=== PATIENT | male | born 1955 | race Caucasian/White ===

== ENCOUNTER 2016-11-21 13:53 | Emergency (ER) | payer BC ==
[2016-11-21] MEDS ORDERED: SODIUM CHLORIDE 0.9% 1,000 ML IV STA ×2 (15:24)
[2016-11-21] MEDS ORDERED: ACETAMINOPHEN IV (For NPO) 1,000 MG in SALINE 100 100ML.BAG IVPB STA (15:25)
--- NOTE | 2016-11-21 15:26 | ED ---
General Adult HPI - General Chief complaint: Abdominal Pain Stated complaint: Side/Abd Pain Time Seen by Provider: 11/21/16 15:15 Source: patient, RN notes reviewed Mode of arrival: wheelchair Limitations: no limitations - History of Present Illness Initial comments: 59-year-old male who presents emergency room today with a chief complaint of left sided abdominal pain. Patient admits that pain started approximately midnight last night. Patient states that sharp type pain located in the left side currently only 1/10. Does admit that he had symptoms of nausea vomiting earlier as well. States he did have kidney stones in the past and provides some somewhat of this. He denies any other symptoms at this time. Patient denies any recent fever, chills, shortness of breath, chest pain, back pain, numbness or tingling, dysuria or hematuria, constipation or diarrhea, headaches or visual changes, or any other complaints. - Related Data Home Medications Medication Instructions Recorded Confirmed Aspirin EC [Ecotrin Low Dose] 81 mg PO QAM 11/21/16 11/21/16 Atorvastatin [Lipitor] 40 mg PO QAM 11/21/16 11/21/16 Loratadine [Claritin] 10 mg PO QAM 11/21/16 11/21/16 Bouse-3 Fatty Acids/Fish Oil [Fish 1 cap PO QAM 11/21/16 11/21/16 Oil 1,000 mg Softgel] Omeprazole 20 mg PO QAM 11/21/16 11/21/16 Previous Rx's Medication Instructions Recorded Hydrocodone/Acetaminophen [[place] 1 each PO Q6HR PRN #20 tab 11/21/16 5-325] Ibuprofen [Motrin] 800 mg PO Q6HR PRN #30 tab 11/21/16 Ondansetron Odt [Zofran ODT] 4 mg PO Q8HR PRN #20 tab 11/21/16 Tamsulosin [Flomax] 0.4 mg PO DAILY #10 cap 11/21/16 Allergies Allergy/AdvReac Type Severity Reaction Status Date / Time procaine [From Novocain] Allergy Severe Anaphylaxis Verified 11/21/16 15:52 morphine AdvReac Severe Nausea & Verified 11/21/16 15:52 Vomiting Review of Systems ROS Statement: Those systems with pertinent positive or pertinent negative responses have been documented in the HPI. ROS Other: All systems not noted in ROS Statement are negative. Past Medical History Past Medical History: GERD/Reflux, Hyperlipidemia History of Any Multi-Drug Resistant Organisms: None Reported Additional Past Surgical History / Comment(s): oral Past Psychological History: No Psychological Hx Reported Smoking Status: Former smoker Past Alcohol Use History: None Reported Past Drug Use History: None Reported General Exam - General Exam Comments Initial Comments: General: The patient is awake and alert, in no distress, and does not appear acutely ill. Eye: Pupils are equal, round and reactive to light, extra-ocular movements are intact. No nystagmus. There is normal conjunctiva bilaterally. No signs of icterus. Ears, nose, mouth and throat: There are moist mucous membranes and no oral lesions. Neck: The neck is supple, there is no tenderness or JVD. Cardiovascular: There is a regular rate and rhythm. No murmur, rub or gallop is appreciated. Respiratory: Lungs are clear to auscultation, respirations are non-labored, breath sounds are equal. No wheezes, stridor, rales, or rhonchi. Gastrointestinal: Soft, non-distended, non-tender abdomen without masses or organomegaly noted. There is no rebound or guarding present. No CVA tenderness. Bowel sounds are unremarkable. Musculoskeletal: Normal ROM, no tenderness. Strength 5/5. Sensation intact. Pulses equal bilaterally 2+. Neurological: A&O x 3. CN II-XII intact, There are no obvious motor or sensory deficits. Coordination appears grossly intact. Speech is normal. Skin: Skin is warm and dry and no rashes or lesions are noted. Psychiatric: Cooperative, appropriate mood & affect, normal judgment. Limitations: no limitations Course Vital Signs 11/21/16 11/21/16 11/21/16 14:05 15:48 17:16 Temperature 97.8 F 97.8 F 98.5 F Pulse Rate 90 99 97 Respiratory 20 16 14 Rate Blood Pressure 164/85 176/96 167/85 O2 Sat by Pulse 98 97 97 Oximetry Medical Decision Making - Medical Decision Making Patient reexamined at this time shows no signs acute distress. Resting comfortably in the stretcher. Patient abdomen soft on palpation. His pain is controlled here in the emergency room. His labs been reviewed shows a 15,000 white count. He does admit his episodes of nausea vomiting this morning. Patient's CAT scan does reveal a 4 mm stone on the left. Patient feels comfortable being discharged home. Will be given a prescription for pain medication, nausea medication to go home with. Advised follow-up with urologist over the next 2 days if symptoms have not improved or return here to emergency room if any symptoms increase or worsen or for any other concerns. - Lab Data Result diagrams: 11/21/16 15:53 11/21/16 16:18 Lab Results 11/21/16 11/21/16 11/21/16 Range/Units 15:53 15:53 16:18 WBC 15.9 H (3.8-10.6) k/uL RBC 5.64 (4.30-5.90) m/uL Hgb 16.7 (13.0-17.5) gm/dL Hct 48.6 (39.0-53.0) % MCV 86.1 (80.0-100.0) fL MCH 29.5 (25.0-35.0) pg MCHC 34.3 (31.0-37.0) g/dL RDW 12.9 (11.5-15.5) % Plt Count 229 (150-450) k/uL Neutrophils % 87 % Lymphocytes % 7 % Monocytes % 4 % Eosinophils % 1 % Basophils % 1 % Neutrophils # 13.9 H (1.3-7.7) k/uL Lymphocytes # 1.1 (1.0-4.8) k/uL Monocytes # 0.6 (0-1.0) k/uL Eosinophils # 0.1 (0-0.7) k/uL Basophils # 0.1 (0-0.2) k/uL Sodium 145 (137-145) mmol/L Potassium 4.2 (3.5-5.1) mmol/L Chloride 107 (98-107) mmol/L Carbon Dioxide 28 (22-30) mmol/L Anion Gap 10 mmol/L BUN 12 (9-20) mg/dL Creatinine 1.07 (0.66-1.25) mg/dL Est GFR (MDRD) Af Amer >60 (>60 ml/min/1.73 sqM) Est GFR (MDRD) Non-Af >60 (>60 ml/min/1.73 sqM) Glucose 112 H (74-99) mg/dL Calcium 9.8 (8.4-10.2) mg/dL Total Bilirubin 0.7 (0.2-1.3) mg/dL AST 23 (17-59) U/L ALT 42 (21-72) U/L Alkaline Phosphatase 103 (38-126) U/L Total Protein 7.2 (6.3-8.2) g/dL Albumin 4.3 (3.5-5.0) g/dL Amylase 72 (30-110) U/L Lipase 102 (23-300) U/L Urine Color Yellow Urine Appearance Clear (Clear) Urine pH 5.5 (5.0-8.0) Ur Specific [place] 1.018 (1.001-1.035) Urine Protein Trace H (Negative) Urine Glucose (UA) Negative (Negative) Urine Ketones Negative (Negative) Urine Blood Trace H (Negative) Urine Nitrate Negative (Negative) Urine Bilirubin Negative (Negative) Urine Urobilinogen <2.0 (<2.0) mg/dL Ur Leukocyte Esterase Negative (Negative) Urine RBC 20 H (0-5) /hpf Urine WBC 1 (0-5) /hpf Urine Bacteria Rare H (None) /hpf Urine Mucus Occasional H (None) /hpf Disposition Clinical Impression: Kidney stone Disposition: HOME SELF-CARE Condition: Good Instructions: Kidney Stones (ED) Additional Instructions: Please use medication as discussed. Please follow-up with family doctor in the next 2 days of symptoms have not improved. Please return to emergency room if the symptoms increase or worsen or for any other concerns. Prescriptions: Hydrocodone/Acetaminophen [[place] 5-325] 1 each PO Q6HR PRN #20 tab PRN Reason: Pain Ibuprofen [Motrin] 800 mg PO Q6HR PRN #30 tab PRN Reason: Pain Ondansetron Odt [Zofran ODT] 4 mg PO Q8HR PRN #20 tab PRN Reason: Nausea Tamsulosin [Flomax] 0.4 mg PO DAILY #10 cap Referrals: Monik Connors MD [Primary Care Provider] - 1-2 days Magdaleno Mchugh MD [STAFF PHYSICIAN] - 1-2 days Time of Disposition: 17:20
[2016-11-21 16:06] LABS: Basophils # (A) 0.1 k/uL (0-0.2); Basophils % (A) 1 %; CH 29.7; CHCM 34.7; Eosinophils # (A) 0.1 k/uL (0-0.7); Eosinophils % (A) 1 %; HCT 48.6 % (39.0-53.0); HDW 2.78; HGB 16.7 gm/dL (13.0-17.5); Luc # (Auto) 0.12; Luc % (Auto) 1; Lymphocytes # (A) 1.1 k/uL (1.0-4.8); Lymphocytes % (A) 7 %; MCH 29.5 pg (25.0-35.0); MCHC 34.3 g/dL (31.0-37.0); MCV 86.1 fL (80.0-100.0); Mean Platelet Volume 7.8; Monocytes # (A) 0.6 k/uL (0-1.0); Monocytes % (A) 4 %; Neutrophils # (A) 13.9 k/uL (1.3-7.7); Neutrophils % (A) 87 %; RBC 5.64 m/uL (4.30-5.90); RDW 12.9 % (11.5-15.5); WBC 15.9 k/uL (3.8-10.6); WBC (Perox) 16.32
[2016-11-21 16:08] LABS: Appearance,Urine Clear (Clear); Bacteria,Urine Rare /hpf; Bilirubin,Urine Negative (Negative); Glucose,Urine (UA) Negative (Negative); Ketones,Urine Negative (Negative); Leukocyte Esterase,Urine Negative (Negative); Mucus,Urine Occasional /hpf; Nitrite,Urine Negative (Negative); PH, Urine 5.5 (5.0-8.0); Particle Count 2907; Protein,Urine Trace (Negative); RBC,Urine 20 /hpf (0-5); Specific Gravity,Urine 1.018 (1.001-1.035); UA Billing (MACRO vs. MICRO) MICRO; Urobilinogen,Urine <2.0 mg/dL (<2.0); WBC,Urine 1 /hpf (0-5)
--- NOTE | 2016-11-21 16:11 | XR ---
EXAMINATION TYPE: XR KUB DATE OF EXAM: 11/21/2016 4:06 PM COMPARISON: NONE INDICATION: Abdomen pain left side TECHNIQUE: Single view abdomen FINDINGS: There is a normal bowel gas pattern. Psoas margins are normal. No organomegaly is present. No free air is under the diaphragm. No suspicious air-fluid levels or differential air-fluid levels a re present. IMPRESSION: 1. Unremarkable Abdomen
[2016-11-21 16:47] LABS: ALT 42 U/L (21-72); AST 23 U/L (17-59); Alkaline Phosphatase 103 U/L (38-126); Amylase 72 U/L (30-110); Anion Gap 10 mmol/L; Blood Urea Nitrogen 12 mg/dL (9-20); Calcium 9.8 mg/dL (8.4-10.2); Carbon Dioxide 28 mmol/L (22-30); Chloride 107 mmol/L (98-107); Glucose 112 mg/dL (74-99); Non-African American GFR(MDRD) >60 (>60 ml/min/1.73 sqM); Potassium 4.2 mmol/L (3.5-5.1); Sodium 145 mmol/L (137-145); Total Bilirubin 0.7 mg/dL (0.2-1.3); Total Protein 7.2 g/dL (6.3-8.2)
--- NOTE | 2016-11-21 17:02 | CT ---
EXAMINATION TYPE: CT abdomen pelvis wo con DATE OF EXAM: 11/21/2016 4:50 PM COMPARISON: NONE INDICATION: Left sided abdominal pain. DLP: 957.00 mGycm, Automated exposure control for dose reduction was used. CONTRAST: None Study performed without Oral Contrast TECHNIQUE: Axial images were obtained from above the diaphragm to the pubic rami in the axial plane a t 5 mm thick sections. Reconstructed images are reviewed on the computer in the coronal plane. FINDINGS: Limited CT sections are obtained the lung bases. The lung bases are clear. CT ABDOMEN: Liver: Normal Spleen: Normal Pancreas: Normal Adrenal glands: The adrenal glands are normal. Gallbladder: Small gallstones are present. Kidneys: No masses are evident. There is mild prominence of the left renal collecting system. Within the proximal left ureter is a 0.4 cm calcified calcification. The distal ureter is decompressed. Ther e is a 5.7 cm cyst on the superior medial right pole kidney measuring 5 Hounsfield units. Delayed im ages were obtained through the kidneys, which remain unremarkable. Aorta: Vascular calcification is within the aorta. Inferior vena cava: Normal. CT PELVIS: Periumbilical fat-containing hernias are present. Loops of bowel within the abdomen and pelvis are normal. There are loops of bowel which are incom pletely distended or lack oral contrast limiting their evaluation. Appendix: Normal as visualized. Urinary bladder: Decompressed with limited evaluation. Genitourinary structures: Prostate contains calcification is slightly prominent. Osseous structures: No suspicious lytic or sclerotic lesions. Some degenerative disc changes within t he lumbar spine. IMPRESSIONS: 1. Mildly obstructing 0.4 cm proximal left ureteral calcification with mild hydronephrosis. 2. Right renal cyst. 3. Periumbilical fat-containing hernia is
[2016-11-21 17:18] VITALS: BP 167/85; TEMP 98.5
[2016-11-21 17:40] VITALS: PULSE 96; RESP 16
== END 2016-11-21 17:40 | disposition home or self-care (01) ==
LOC: EC 13:53
DX: N13.2 Hydronephrosis with renal and ureteral calculous obstruction (principal); N28.1 Cyst of kidney, acquired; K21.9 Gastro-esophageal reflux disease without esophagitis; E78.5 Hyperlipidemia, unspecified; Z79.82 Long term (current) use of aspirin; Z79.899 Other long term (current) drug therapy; Z88.4 Allergy status to anesthetic agent; Z87.891 Personal history of nicotine dependence; Z87.442 Personal history of urinary calculi
CPT/HCPCS: 36415; 80053; 82150; 83690; 85025; 81001; 74000; 74176; 99284; 96374; 96361 ×2; J0131